=== PATIENT | male | born 2005 | race Caucasian/White ===

== ENCOUNTER 2025-05-19 22:19 | Emergency (ER) | payer OTHER, SELFPAY ==
--- OUTSIDE RECORDS SUMMARY | 2023-11-18 06:20 | XMS_ITS ---
Author Organization [facility] Office Address [address] [facility] [place] [phone] Care Team Providers Care Elementary School Teacher'S Aide Name Role Phone IONA SKY Primary Care Provider REASON FOR VISIT concussion recheck Encounters Encounter Location Date Provider Diagnosis [facility] Office [address] [place] [phone] 11/18/2023 IONA SKY Plan Of Treatment No Information Progress Notes * John NGUYENDOB:[birth year] (19 yo M)Acc No.[id number]:11/18/2023 Progress Notes Patient: John QUINTERO Provider: Bertram Sky M.D. :2005 A ge:18 Y S ex:Male Date:11/18/2023 Address:[address] [place] [address] [id number] Subjective: * Chief Complaints: * 1 . Concussion recheck. * Medical History: Objective: * Vitals: Assessment: Plan: * Treatment: * Billing Information: * Visit Code: * Procedure Codes: * Electronic signature of IONA SKY M.D. on 05/19/2025 at 10:48 PM EST Sign off status: Pending * Provider: Bertram Sky M.D. Date: 0 11/18/2023 Generated for Printi ng/Faxing/eTransmitting on: 1 07/19/2024 10:48 PM EST
--- OUTSIDE RECORDS SUMMARY | 2025-02-22 10:30 | XMS_ITS ---
Author Organization [facility] Office Address [address] [facility] [place] [phone] Care Team Providers Care Transcribing Machine Mechanic Name Role Phone IONA SKY Primary Care Provider JULIETH SHANKS REASON FOR VISIT 19 yr Encounters Encounter Location Date Provider Diagnosis [facility] Office [address] [place], [place] [phone] 02/22/2025 JULIETH SHANSK Plan Of Treatment No Information Progress Notes * John NGUYENDOB:[birth year] (19 yo M)Acc No.[id number]:02/22/2025 ProgressNotes Patient: John QUINTERO Provider: Bertram SHANKS MD :2005 A ge:19 Y S ex:Male Date:02/22/2025 Address:[address] [place] [address] [id number] Pcp:IONA SKY Subjective: * Chief Complaints: * 1 . 19 yr. * Medical History: Objective: * Vitals: Assessment: Plan: * Treatment: * Billing Information: * Visit Code: * Procedure Codes: * Electronic signature of ALEJANDRA SHANKS MD on 05/19/2025 at 10:48 PM EST Sign off status: Pending * Provider: Bertram SHANKS MD Date: 0 02/22/2025 Generated for Darini francisco javier/Howie/eTransmitting on: 07/19/2024 10:48 PM EST
--- OUTSIDE RECORDS SUMMARY | 2025-03-02 09:20 | XMS_ITS ---
Author Organization [employer] Office Address [address] [place] [phone] Care Team Providers Care Senior Grant Writer Name Role Phone IONA SKY Primary Care Provider JULIETH SHANKS Unavailable Results Component Value Reference Range Notes US Scrotal Ultrasound with Nichelle ashby Reviewed date:03/02/2025 06:41:49 PM Interpretation: Performing Lab: Notes/Report: See Below For Report [facility] for a few days. Realtime taylor scale and color flow and spectral analysis Doppler imaging of the scrotum is performed. The right testis is 3.9 cm in length, and the left testis is 3.6 cm in length. No testicular lesion is seen, normal arterial and venous flow are seen in both testes on color Doppler imaging and the echotexture of the testes is normal. The epididymis of each testis is normal. No hydrocele or varicocele is noted. Impression: Unremarkable scrotal ultrasound. US Scrotal Ultrasound with Doppler See Below For Repor t REASON FOR VISIT scrotal Encounters Encounter Location Date Provider Diagnosis [facility] Office [address] [place] [phone] 03/02/2025 JULIETH SHANKS Right testicular pain N50.811 Assessments Encounter Date Diagnosis (ICD Code) Assessment Notes Treatment Notes Treatment Clinical Notes Section Notes 03/02/2025 Right testicular pain (ICD-10 - N50.811) Plan Of Treatment No Information Progress Notes * John NGUYENDOB:[birth year] (19 yo M)Acc No.[id number]:03/02/2025 ProgressNotes Patient: John QUINTERO Provider: Bertram SHANKS MD :2005 A ge:19 Y S ex:Male Date:03/02/2025 Address:[address] [place] [address] [id number] Pcp:IONA SKY Subjective: * Chief Complaints: * 1 . Scrotal. * Medical History: Objective: * Vitals: Assessment: * Assessment: 1. R ight testicular pain - N50.811 Plan: * Treatment: * Procedure Codes: 9 3975 VASCULAR STUDY, 80562 US EXAM, SCROTUM * Billing Information: * Visit Code: * Procedure Codes: 27050 VASCULAR STUDY. 49847 US EXAM, SCROTUM. * Electronic signature of ALEJANDRA SHANKS MD on 05/19/2025 at 10:50 PM EST Sign off status: Pending * Provider: Bertram SHANKS MD Date: 0 03/02/2025 Generated for Kishore mcintyre/Howie/Andresmitting on: 1 07/19/2024 10:50 PM EST
[2025-05-19 22:32] VITALS: BP 135/75; PULSE 78; RESP 20; TEMP 36.7; O2SAT 99; BMI 22.1
--- OUTSIDE RECORDS SUMMARY | 2025-05-19 22:48 | XMS_ITS | Encounter Summary ---
Author Organization [facility] Address [address] [place] [address] Care Team Providers Care Employee Placement Specialist Name Role Phone Jacobo Box MD Primary Care Provider [phone] Encounter Details Date Type Department Care Team (Late st Contact Info) Description 07/12/2013 Clinical Conversion Encounter GENERAL CONVERSION Adarsh Mendez DO Social History Tobacco Use Types Packs/Day Years Used Date Smoking Tobacco: Never Assessed Sex and Gender Information Value Date Recorded Sex Assigned at Not on file Legal Sex Male 4:27 PM EST Gender Identity Not on file Sexual Orientation Not on file documented as of this encounter ED Notes * Adarsh Mendez DO - 09/01/2014 3:55 PM EST [id number],MAX [place], [place]. Clinical Report - Physicians/Mid Levels [facility] Emergency Department [address] [place] [address] 07/12/2013 Patient: JESSY NGUYEN : 2005 Sex: M FC: COM Arrived- By private vehicle. Historian- patient and mother. HISTORY OF PRESENT ILLNESS Chief Complaint: INJURY TO HEAD. Location of injuries- head. This occurred last night. The patient fell while standing and landed on a hard surface. Occurred at home. The patient complains of mild pain. The patient cried immediately. No loss of consciousness, seizure or neck pain. Not dazed. REVIEW OF SYSTEMS Has not been acting differently. No headache, numbness, loss of vision, weakness or hearing loss. No bladder dysfunction, laceration or vomiting. All systems otherwise negative, except as recorded above. PAST HISTORY See nurses notes. Surgeries: No history of previous surgery. Additional Surgeries: no known surgeries. Tetanus immunization status is up-to-date. Immunization status is up-to-date. SOCIAL HISTORY Nonsmoker. Attends school. The patient lives with parent (s). ADDITIONAL NOTES The nursing notes have been reviewed. PHYSICAL EXAM Appearance: Alert. Oriented X3. No acute distress. Attentive. Smiles. The patient makes eye contact. Active. Playful. Vital Signs: (BP: 106 / 73. HR: 70. RR: 16. Temp: 97.8. O2 saturation: room air:100 percent. Pain level now: 0/10. --02:16). Head: Head tender. Anterior fontanel closed. Occiput: mild tenderness and swelling of the left side of the lower occiput. Eyes: Pupils equal, round and reactive to light. EOM intact. ENT: No dental injury. Normal external inspection. Neck: Neck non-tender. Painless ROM. CVS: Capillary refill normal. Strong peripheral pulses. Heart sounds normal. Respiratory: No respiratory distress. Breath sounds normal. Chest nontender. Abdomen: No visible injury. Soft and nontender. Bowel sounds normal. No organomegaly. Back: No tenderness. ROM normal. Skin: Skin intact. Skin warm and dry. Normal skin color. Normal skin turgor. Extremities: Extremities nontender. Extremities exhibit normal ROM. Pelvis stable. Extremities atraumatic. Gait: Normal gait. Neuro: Mental status is normal for the patient's age. No motor deficit or sensory deficit. PROGRESS AND PROCEDURES Course of Care: 02:37. Child is normal on exam except for small swelling where he hit his head. He is very interactive and no signs of neurologic injury or insult. Offered the mother to get a CT of the head if she is concerned or she can do close monitoring of the patient. The mother called the father and they decided to monitor the patient.. Mother counseled in person regarding the patient's stable condition, diagnosis and need for follow-up. Disposition: Condition: good and stable and stable and good. Discharged. CLINICAL IMPRESSION Minor closed head injury without loss of consciousness. Single contusion with soft tissue hematoma to the scalp. Fall. INSTRUCTIONS Apply ice intermittently (15-20 minutes at a time 4-6 times daily). No strenuous activity. Rest. Do not participate in contact sports for one week until released. Warnings: HEAD INJURY PRECAUTIONS: An observer must check on the patient every hour for the next 24 hours (awaken if sleeping) to confirm that the patient responds as expected, is not confused, has no new weakness or numbness, and has no other problems. COMPLICATIONS: Complications from this condition are possible. Future problems may include loss of function and pain. It is important to follow up with a physician for further evaluation and treatment. Warnings: See your physician or return immediately If your child becomes irritable, difficult to console, listless, sleeps more than usual, has a decreased fluid intake; has decreased urination; has a temperature or fever; has abdominal pain; vomiting; diarrhea; or if other concerns arise. Likewise, if your child's condition does not improve as expected, be sure to see your physician or return to the emergency department. Your Current Medications: Your current home medications have been reviewed by the physician. No changes in your current home medications are recommended at this time. CONTINUE TAKING THE FOLLOWING MEDICATIONS: None. Follow-up: Return to the emergency department as needed. Follow up with your doctor in three days even if well. Call for the next available appointment. Follow up with a rn ccu in three days. Call for the next available appointment. Understanding of the discharge instructions verbalized by patient and parent. (Electronically signed by Adarsh Mendez DO 07/12/2013 4:18) THIS DOCUMENT WAS ELECTRONICALLY AUTHENTICATED BY Vanessa ON 07/12/2013 02:02:04: documented in this encounter Plan of Treatment Not on file documented as of this encounter Visit Diagnoses Not on filedocumented in this encounter Care Teams Employee Placement Specialist Relationship Specialty Start Date End Date Jacobo Box MD [address] [place] [phone] PCP - General 05/17/14 documented as of this encounter
--- OUTSIDE RECORDS SUMMARY | 2025-05-19 22:48 | XMS_ITS | Clinical Summary ---
Author Organization [facility] Address [address] [facility] [place] [address] Care Team Providers Care Healthcare Insurance Sales Agent Name Role Phone Unavailable Primary Care Provider Unavailabl e Social History Tobacco Use Types Packs/Day Years Used Date Smoking Tobacco: Never Assessed Sex and Gender Information Value Date Recorded Sex Assigned at Not on file Legal Sex Male 12:38 PM EST Gender Identity Not on file Sexual Orientation Not on file Last Filed Vital Signs Vital Sign Reading Time Taken Comments Blood Pressure 105/69 01/02/2017 12:00 AM EDT Sourced from [facility] Conversion Pulse - - Temperature - - Respiratory Rate - - Oxygen Saturation - - Inhaled Oxygen Concentration - - Weight 40.8 kg (89 lb 15.2 oz) 01/02/2017 12:00 AM EDT Sourced from [facility] Conversion Height 150.6 cm (4' 11.3 ) 01/02/2017 1 2:00 AM EDT Sourced from [facility] Conversion Body Mass Index 17.98 01/02/2017 12:00 AM EDT Plan of Treatment Health Maintenance Due Date Last Done Comments HPV vaccine (1 - Male 3-dose series) 10/18/2019 HIV screen 2022 Hepatitis C Screening 2022 Hepatitis B vaccine (0-59 yrs) and Risk (1) 10/18/2023 Tetanus/Diphtheria/Pertussis Vaccines (1 - Tdap) 10/17 Covid-19 Vaccine (1 - 2024- season) 2025 Influenza (Flu) vaccine (1 o f 1 - Influenza standard series) 03/08/2025
--- OUTSIDE RECORDS SUMMARY | 2025-05-19 22:48 | XMS_ITS | Encounter Summary ---
Author Organization [facility] Address [address] [place] [address] Phone Care Team Providers Care Sales Hunter Name Role Phone Jacobo Box MD Primary Care Provider [phone] Encounter Details Date Type Department Care Team (Latest Contact Info) Description 01/17/2021 Transcribe Orders [facility] Quentin [address] [place] [address] Iza Victoria MD [address], [address] [place] [address] [email or web address] Sensorineural hearing loss, bilateral (Primary Dx) Social History Tobacco Use Types Packs/Day Years Used Date Smoking Tobacco: Passive Smo ke Exposure - Never Smoker Smokeless Tobacco: Never Sex and Gender Information Value Date Recorded Sex Assigned at Not on file Legal Sex Male 10:36 AM EST Gender Identity Not on file Sexual Orientation Not on file documented as of this encounter Plan of Treatment Not on file documented as of this encounter Procedures Procedure Name Priority Date/Time Associated Diagnosis Comments HEARING TEST Routine 01/19/2021 4:27 PM EDT Sensorineural hearing loss, bilateral documented in this encounter Results * Hearing Test (01/19/2021 4:27 PM EDT) Other us Iza Victoria MD AUDIOLOGY SERVICES ORDERABLES Final Result documented in this encounter Visit Diagnoses Diagnosis Sensorineural hearing loss, bilateral- Primary documented in this encounter Care Teams Sales Hunter Relationship Specialty Start Date End Date Jacobo Box MD [address] [place] [phone] [email or web address] PCP - General Pediatrics 12/22/15 documented as of this encounter Additional Source Comments The information contained in this document represents components of the legal health record. It is not the complete legal health record.[facility]
--- OUTSIDE RECORDS SUMMARY | 2025-05-19 22:49 | XMS_ITS | Clinical Summary ---
Author Organization [facility] Address [address] [place] [address] Phone Care Team Providers Care Certified Medical Aide Name Role Phone Jacobo Box MD Primary Care Provider [phone] Allergies No known active allergies Medications No known medications Active Problems Problem Noted Date Diagnosed Date Mass of chest wall 01/30/2016 Infectious warts 11/04/2014 Overview (06/14/2015): Verruca vulgaris Social History Tobacco Use Types Packs/Day Years Used Date Smoking Tobacco: Passive Smo ke Exposure - Never Smoker Smokeless Tobacco: Never Education Answer Date Recorded Are you interested in more education? Not on fabián e 11/02/2022 Are you concerned about learning? Not on file 11/02/2022 No 11/02/2022 No 11/02/2022 Digital Access Answer Date Recorded No 12/03/2022 No 12/03/2022 Reliable internet access at home? Not on file 12/03/2022 Device with a working camera? Not on file Sex and Gender Information Value Date Recorded Sex Assigned at Not on file Legal Sex Male 10:36 AM EST Gender Identity Not on file Sexual Orientation Not on file Last Filed Vital Signs Vital Sign Reading Time Taken Comments Blood Pressure 112/74 01/04/2023 6:11 PM EDT Pulse 79 01/04/2023 6:11 PM EDT Temperature 36.9 C (98.5 F) 01/04/2023 6:11 PM EDT Respiratory Rate 16 01/04/2023 6:11 PM EDT Oxygen Saturation 100% 01/04/2023 6:11 PM EDT Inhaled Oxygen Concentration - - Weight 40.3 kg (88 lb 13.6 oz) 07/28/2017 12:21 PM EST Height 148.5 cm (4' 10.47 ) 02/27/2016 3:07 PM E DT Body Mass Index - - Plan of Treatment Health Maintenance Due Date Last Done Comments MMR VACCINES (1 of 1 - Standard series) 2005 DEVELOPMENTAL/BEHAVIORAL SCREENING (PHQ, PSC, or SWYC) 10/18/2007 DEPRESSION SCREENING 2016 COMBINED DTaP,Tdap,Td (2 - T d or Tdap) 01/10/2017 12/13/2016 SMOKING Hx and SMOKELESS TOBACCO SCREENING 2017 VARICELLA VACCINES (1 of 2 - 13+ 2-dose series) 2017 MENINGOCOCCAL VACCINES (B) ( 1 of 2 - Standard) 2020 HPV VACCINES (3 - Male 3-dos e series) 08/31/2021 06/08/2021, 03/28/2020 ADOLESCENT UNIVERSAL LIPID SCREENING 2021 HEPATITIS C SCREENING 2022 HIV ONE-TIME SCREENING (18-6 5 YEARS) 2022 INFLUENZA VACCINE (#1) 2025 03/28/2020 COVID-19 VACCINE (3 - 2024-2 6 season) 2025 12/10/2020, 11/19/2020 MENINGOCOCCAL VACCINES (ACWY) Completed 06/08/2021 HEPATITIS A VACCINES Aged Out No long er eligible based on patient's age to complete this topic HIB VACCINES Aged Out No longer eligi ble based on patient's age to complete this topic IPV VACCINES Aged Out No longer eligi ble based on patient's age to complete this topic PNEUMOCOCCAL VACCINES (0-49 years) Aged Out No longer eligible b ased on patient's age to complete this topic Medical Devices Not on file Insurance [facility] BLUE [employer] OUT OF STATE PPO BLUE CROSS OUT OF STATE PPO [employer] [place] OUT OF STATE PPO [facility] OUT OF STATE PPO BLUE [employer] OUT OF STATE PPO [employer] OUT OF STATE PPO BL[employer] OUT OF STATE PPO [employer] [place] OUT OF STATE PPO [facility] OUT OF STATE PPO Care Teams Certified Medical Aide Relationship Specialty Start Date End Date Jacobo Box MD [address] [place] [address] [email or web address] PCP - General Pediatrics 12/22/15 Additional Source Comments The information contained in this document represents components of the legal health record. It is not the complete legal health record.[facility]
--- OUTSIDE RECORDS SUMMARY | 2025-05-19 22:50 | XMS_ITS | Clinical Summary ---
Author Organization [facility] Address [address] [place] [address] Care Team Providers Care Deep Tissue Massage Therapist Name Role Phone Jacobo Box MD Primary Care Provider Social History Tobacco Use Types Packs/Day Years Used Date Smoking Tobacco: Never Assessed Sex and Gender Information Value Date Recorded Sex Assigned at Not on file Legal Sex Male 4:27 PM EST Gender Identity Not on file Sexual Orientation Not on file Plan of Treatment Not on file Care Teams Deep Tissue Massage Therapist Relationship Specialty Start Date End Date Jacobo Box MD [address] [place] [address] [place] [phone] PCP - General 05/17/14
--- NOTE | 2025-05-19 23:03 | ED_ITS ---
History of Present Illness General Chief Complaint: Epistaxis Stated Complaint: bloddy nose, eyes bleeding Time Seen by Provider: 05/19/25 22:51 Source: patient Mode of arrival: ambulatory Limitations: no limitations History of Present Illness ED Provider: Dr. Tameka Chaudhary [facility] Narrative: The patient is a 19-year-old male who is a student at the [employer]. Comes to the emergency room for evaluation of a nosebleed that he thinks is primarily on the right side. He says that he was taking a shower this evening when his nose started to bleed. He could not manage the bleeding at home and so he was brought to the hospital by friends. He has been feeling somewhat lightheaded. He denies any trauma. Related Data Allergies Allergy/AdvReac Type Severity Reaction Status Date / Time No Known Allergies Allergy Verified 05/19/25 22:34 Review of Systems 2 Review of Systems: Yes all other systems are reviewed and are negative PMFSH Social History Social History Alcohol intake: never Smoked in Last 30 Days: No Any prior treatment program specific to substance use: No Advance Directives: No Advance Directives Information Provided: No Do you have a plan to hurt others: No Plan Physical Exam 2 Exam: Exam: Appearance: Alert. Oriented X3. No acute distress. Eyes: Pupils equal, round and reactive to light. There is no signs of any ocular injury . However, when patient blows his nose, he does have bloody tears coming from his right eye. ENT: Pharynx normal. active bleeding from both nostrils. Neck: Normal inspection. Neck supple. No lymph nodes noted. No crepitus CVS: Normal heart rate and rhythm. Pulses normal. Normal S1 and S2 Respiratory: No respiratory distress. Breath sounds normal. No Wheezing. No rales Abdomen: Soft and nontender. No rigidity. No distention. Skin: Skin warm and dry. Normal skin color. Normal skin turgor. Extremities: No lower extremity edema. No Lacerations. No Rash Neuro: Oriented X 3. No motor deficit. No sensory deficit. Moving all extremities. No slurred speech. CN 2 through 12 grossly intact Psych: calm, cooperative, normal affect Vital Signs: Vital Signs: Last Vital Signs Temp 98.0 F 05/20/25 02:36 Pulse 79 05/20/25 02:36 Resp 20 05/20/25 02:36 BP 117/59 L 05/20/25 02:36 Pulse Ox 99 05/20/25 02:36 O2 Del Method Room Air 05/20/25 02:36 BMI result Body Mass Index 22.1 Const: Other: the patient is a slim, 19-year-old man who looks as though he is ordinarily healthy. He was holding his nose because of ongoing bleeding. Orientation/consciousness: patient oriented x3 HEENT: Other: The patient had copious nasal bleeding that seemed to be primarily from the right nostril although some blood was coming out the left nostril as well. There was a large clot in the right nostril. I had the patient blow out all the clots of his nose. Even after using oxymetazoline and nasal cocaine to help reduce the bleeding it was difficult to identify a definite source of bleeding. At best I thought there might be some bleeding on the lowest portion of the right septal wall near the floor of the nostril but this was an equivocal finding. Kieelbach's plexus did not seem to be an obvious source of bleeding. there did not seem to be any significant flow of blood down the posterior pharynx. Eyes: Other: The eyes were unremarkable but interestingly some blood was clearly back flowing from the nasal cavity to the medial canthus of the right eye. This occurred when the patient fluids nose. Neck: Neck: Yes normal visual inspection, Yes full ROM and Yes no lymphadenopathy Resp: Effort & Inspection: normal respiratory effort Auscultation: clear to auscultation bilaterally Cardio: Rate: regular rate Rhythm: regular rhythm Heart sounds: S1 normal heart sound present and S2 normal heart sound present Skin: Other: The skin is dry and unremarkable Neuro: General: patient oriented x3, gait normal, moves all extremities, no focal motor deficits and CN's II-XI intact bilaterally Extrem: Other: There is no calf swelling or tenderness. No asymmetry. No peripheral edema. Course Course Course Narrative: applying pressure to the nostrils did not work, patient was given gauze soaked in Afrin. This did not work, we proceeded through applying topical TXA Medications Administered Discontinued Medications Generic Name Dose Route Start Last Admin Trade Name Freq PRN Reason Stop Dose Admin Bacitracin 1 appl 05/20/25 01:03 05/20/25 01:17 Bacitracin Oint 0.9 Gm Packet TOPICAL 05/20/25 01:04 1 appl ONCE ONE Administration Protocol Cocaine HCl 4 ml 05/20/25 00:16 05/20/25 00:21 Cocaine Hcl 4 % 4 Ml Solution TOPICAL 05/20/25 00:17 4 ml ONCE ONE Administration Protocol Lidocaine/Epinephrine 10 ml 05/20/25 01:10 05/20/25 01:18 Lidocaine Hcl 1%/Epi 1:100,000 10 Ml Vial SUBCUT 05/20/25 01:11 10 ml ONCE ONE Administration Meclizine HCl 50 mg 05/19/25 23:46 05/20/25 01:16 Meclizine Hcl 25 Mg Tablet PO 05/19/25 23:47 Not Given ONCE ONE Oxymetazoline HCl 2 spray 05/19/25 22:58 05/19/25 23:38 Oxymetazoline Hcl 0.05 % Nasal 15 Ml [place] NOSTRIL-B 05/19/25 22:59 2 spray ONCE ONE Administration Tranexamic Acid 500 mg 05/19/25 23:38 05/19/25 23:43 Tranexamic Acid 1,000 Mg/10 Ml Vial INTRANASAL 05/19/25 23:39 500 mg ONCE ONE Administration Medical Decision Making Medical Decision Making [facility] Narrative: The patient is a 19-year-old male who appears as if he is ordinarily in good health. He has no known past medical history although he has had previous nose bleeds in the past. None of his previous nose bleeds however have been severe enough to cause an ER visit. Today he presents with a very diffuse of right-sided spontaneous nose bleed. At 1st I had the patient blow out all the clots from his nostrils and I administered multiple sprays of oxymetazoline in both nostrils. A nasal clamp was applied. Later I placed a cotton ball soaked in 4% cocaine in the right nostril. Again a nasal clamp was applied and I waited about 10 minutes. I then re-examined the patient. I was not certain of the source of bleeding. There seemed to be some blood present on the floor of the nostril but there was no obvious anterior septal bleeding. I had some suspicion that there might be some bleeding on the very lowest portion of the right septal near the floor of the nostril fairly far back. I used silver nitrate sticks to cauterize this. At 1st I thought this was successfully controlling the bleeding but there then seemed to be some ongoing bleeding that I really could not identify the source for. There was not a lot of blood going down the back of the patient's mouth. I did not have a very high suspicion for a significant posterior source of bleeding. ultimately I placed a Merocel pack in the patient's right nostril. I injected the Merocel pack with 1% lidocaine with epinephrine. The patient was then observed and did not seem to have a ongoing bleeding and ultimately I felt he was appropriate for discharge. The patient is a student at [employer]. He lives in [place]. He asked me to speak with his mother on the phone which I did. The patient thinks he will be returning to [place] tomorrow. He should contact his PCP to try to arrange local follow up with an ENT specialist. His packing should be removed in 48-72 hours. If he cannot find an ENT specialist he should go to the local emergency room or urgent care. Lab Data 05/20/25 01:42 Labs: Lab Results 05/20/25 Range/Units 01:42 WBC 8.8 (4.8-10.8) X10*3/uL RBC 4.97 (4.60-5.80) X10*6/uL Hgb 14.1 (14.0-18.0) g/dl Hct 40.5 L (42.0-52.0) % MCV 81.5 (80.0-98.0) fL MCH 28.4 (27.0-33.0) pg MCHC 34.8 (31.0-36.0) g/dl RDW 12.8 (11.0-16.0) % Plt Count 293 (160-400) X10*3/uL MPV 9.2 L (9.4-12.4) fL Immature Gran % (Auto) 0.2 (0.0-0.4) % Neut % (Auto) 63.9 (45-73) % Lymph % (Auto) 25.3 (20-40) % [place] % (Auto) 8.8 (2-11) % Eos % (Auto) 1.5 (0-4) % Baso % (Auto) 0.3 (0-2) % Lymph # (Auto) 2.2 (1.2-4.9) X10*3/uL [place] # (Auto) 0.8 (0.1-1.2) X10*3/uL Eos # (Auto) 0.1 (0.0-0.4) X10*3/uL Baso # (Auto) 0.0 (0.0-0.2) X10*3/uL Abs Immat Gran (auto) 0.02 (0.00-0.03) X10*3/uL Absolute Neuts (auto) 5.6 (2.0-8.3) x10*3/uL Absolute Nucleated RBC 0.000 (0.0-0.012) X10*3/uL Nucleated RBC % (auto) 0.0 (0.0-0.2) /100WBC Procedures Epistaxis Control Time Out Performed: Yes Nostril: Yes right Nose prepped with: Yes cocaine 4% and Yes oxymetazoline Direct inspection: Yes unable to visualize Direct inspection method: Yes nasal speculum and Yes headlamp Clots removed by: Yes blowing nose and Yes suction Epistaxis treatment: Yes silver nitrate cautery and Yes nasal tampon (Merocel) Results of treatment: Yes bleeding controlled and Yes treatment well tolerated Complications: Yes none Discharge Plan Discharge Clinical Impression: Epistaxis Patient Disposition: Home, Self-Care Instructions: Nosebleed (ED) Additional Instructions: You have a Merocel packing in your right nostril. This is a sponge-type packing which should be removed in 48-72 hours. I would recommend having the packing removed on Saturday. Before I placed the packing I had difficulty identifying a definite source of bleeding. I cauterized a portion of the lower part of your right nasal septum but I am not certain that was the primary site of bleeding. Please avoid hot beverages and hot foods for the next several days. Hot beverages and hot foods can predispose a person to increased nasal bleeding. if you will be returning to your home in [place] I would recommend contacting your regular primary care doctor tomorrow to see if they can help you arrange a visit with the an ENT doctor on Saturday. If you can be seen by an ENT doctor on Saturday then an ENT doctor could remove the packing on Saturday. If that can not be arranged it would be good to see an ENT doctor next week. In any event I think you should have the packing removed on Saturday if you can not get into see an ENT doctor on Saturday. You has been provided with the ENT office that serves [facility]. If you plan on staying in his area I would call them in the morning. Alternatively you can also contact the [facility] in case they would be comfortable removing this packing on Saturday if you are still in his area. If at any point you have significant worsening bleeding go to the nearest emergency room. Referrals: [facility] [Outside] [facility] [Outside] Interventions: ED Discharge Assessment Last Done: 05/20/25 02:36 Discharge Date/Time: 05/20/25 02:39 Print Language: [place] Citizen
[2025-05-19] MEDS: Oxymetazoline HCl 0.05 % Nasal 15 ML SPRAY 2 SPRAY NOSTRIL-B (23:38)
[2025-05-19] MEDS: Tranexamic Acid 1,000 MG/10 ML VIAL 500 MG INTRANASAL (23:43)
--- NOTE | 2025-05-19 23:44 | PC.NURSE ---
MD at bedside at this time to apply tranx acid to attempt to stop the nosebleed
[2025-05-20 00:10] VITALS: BP 112/67; PULSE 79; RESP 20; TEMP 36.7; O2SAT 99
[2025-05-20] MEDS: Cocaine HCl 4 % 4 ML SOLUTION TOPICAL (00:21)
[2025-05-20] MEDS: Lidocaine HCl 1%/Epi 1:100,000 10 ML VIAL SUBCUT (01:18)
[2025-05-20 01:46] LABS: MANUAL DIFF FLAG NO
--- NOTE | 2025-05-20 01:51 | PC.NURSE ---
at bedside attempting to stop patient nose bleed
[2025-05-20 02:00] LABS: Hematocrit 40.5 % (42.0-52.0); Hemoglobin 14.1 g/dl (14.0-18.0); Imm Gran Abs Auto 0.02 X10*3/uL (0.00-0.03); Imm Gran Pct Auto 0.2 % (0.0-0.4); Lymphocytes Absolute Auto 2.2 X10*3/uL (1.2-4.9); Mean Corpuscular HGB Conc 34.8 g/dl (31.0-36.0); Mean Corpuscular Hemoglobin 28.4 pg (27.0-33.0); Mean Corpuscular Volume 81.5 fL (80.0-98.0); NRBC Abs Auto 0.000 X10*3/uL (0.0-0.012); NRBC Pct Auto 0.0 /100WBC (0.0-0.2); Platelet Count 293 X10*3/uL (160-400); Red Blood Count 4.97 X10*6/uL (4.60-5.80); White Blood Count 8.8 X10*3/uL (4.8-10.8)
[2025-05-20 02:36] VITALS: BP 117/59; PULSE 79; RESP 20; TEMP 36.7; O2SAT 99
== END 2025-05-20 02:39 | disposition home or self-care (01) ==
PROVIDERS: Emergency Provider Emergency Medicine
DX: R04.0 Epistaxis (principal)
CPT/HCPCS: 30901; 30905; 36415; 85025; 99284; C9143; J2004; J2151